=== PATIENT | female | born 1975 ===

== ENCOUNTER 2018-05-26 10:51 | Outpatient (CLI) | payer SELFPAY | END 2018-05-27 08:56 | disposition home or self-care (01) | LOC: C.LAB 10:51 | DX: Z34.80 Encounter for supervision of other normal pregnancy, unspecified trimester (principal) ==

== ENCOUNTER 2018-06-11 09:14 | Outpatient (CLI) | payer SELFPAY | END 2018-06-11 09:15 | disposition home or self-care (01) | LOC: C.LAB 09:14 | DX: R73.09 Other abnormal glucose (principal) ==

== ENCOUNTER 2018-08-18 10:03 | Outpatient (CLI) | payer SELFPAY | END 2018-08-18 10:04 | disposition home or self-care (01) | LOC: C.LAB 10:03 | DX: Z34.80 Encounter for supervision of other normal pregnancy, unspecified trimester (principal) ==